=== PATIENT | male | born 1960 | race Caucasian/White ===

== ENCOUNTER 2016-07-23 07:55 | Emergency (ER) | payer MEDICAID ==
[2016-07-23] MEDS ORDERED: ONDANSETRON HCL 4 MG/2 ML VIAL ONE (08:22)
[2016-07-23] MEDS ORDERED: HYDROmorphone HCL 1 MG/ML SYR ONE (08:22)
[2016-07-23 08:39] LABS: BASOPHIL# 0.1 X 10^3uL (0.0-0.1); BASOPHILS 1.6 % (0.0-2.0); EOSINOPHILS# 0.2 X 10^3uL (0.0-0.4); HEMATOCRIT 45.7 % (42.0-54.0); HEMOGLOBIN 15.6 g/dL (14.0-18.0); LYMPHOCYTES 13.8 % (20.0-40.0); LYMPHOCYTES# 0.8 X 10^3uL (0.8-3.8); MEAN CELL VOLUME 83.5 fL (80.0-100.0); MEAN CORPUS. HGB CONCENTRATION 34.2 g/dL (32.0-36.0); MEAN CORPUSCULAR HEMOGLOBIN 28.5 pg (29.0-35.0); MEAN PLATELET VOLUME 7.6 fL (7.4-10.4); MONOCYTES 11.3 % (2.0-10.0); MONOCYTES# 0.7 X 10^3uL (0.2-1.0); NEUTROPHILS 70.3 % (54.0-75.0); PLATELET COUNT 285 X 10^3uL (130-440); RED BLOOD COUNT 5.47 X 10^6uL (4.20-6.10); RED CELL DISTRIBUTION WIDTH 12.9 % (11.5-14.5); WHITE BLOOD COUNT 5.8 X 10^3uL (3.9-10.7)
[2016-07-23 08:44] LABS: ALBUMIN 4.3 g/dL (3.5-5.0); ALKALINE PHOSPHATASE 66 U/L (38-126); ALT 42 U/L (21-72); AST 30 U/L (17-59); BILIRUBIN, DIRECT 0.2 mg/dL (0.0-0.4); BLOOD UREA NITROGEN 23 mg/dL (9-20); CHLORIDE 104 mmol/L (98-107); CREATININE 0.9 mg/dL (0.7-1.3); EST GLOMERULAR FILTRATION RATE > 60 mL/min; GLUCOSE 96 mg/dL (70-100); LIPASE 86 U/L (23-300); POTASSIUM 4.5 mmol/L (3.5-5.1); SODIUM 137 mmol/L (137-145); TOTAL PROTEIN 7.2 g/dL (6.3-8.2)
[2016-07-23] MEDS ORDERED: KETOROLAC TROMETHAMINE 30 MG/ML VIAL ONE (09:20)
[2016-07-23] MEDS ORDERED: BUPIVACAINE HCL/PF 0.5% 30 ML VIAL ONE (09:57)
[2016-07-23] MEDS ORDERED: METHYLPREDNISOLONE ACETATE 40 MG/ML VIAL ONE (10:02)
--- NOTE | 2016-07-23 10:38 | ER PHYSICIAN DOCUMENTATION ---
Physician Documentation [facility] Name:Stephon Quigley Age:56 yrs Sex:Male :1960 Arrival Date:07/23/2016 Time:07:55 Bed4 Private MD:Franky Cordon ED, Scott Disposition: 07/23/16 10:26 Discharged to Home/Self Care. Impression: Abdominal Pain, Unspecified. - Condition is Good. - Discharge Instructions: Abdomen - ABDOMINAL PAIN, Unkown Cause, (Male). - Medical Reconciliation form form. - Follow up: Mckinley Figueroa MD; When: 1 week; Reason: Recheck today's complaints. - Problem is new. - Symptoms have improved. HPI: 07/23 09:10 This 56 yrs old Male presents to ER via Private Vehicle with complaints of sc Abdominal Pain. 09:10 The patient presents with abdominal pain right lower quadrant. Onset: The sc symptoms/episode began/occurred 3 week(s) ago, and became worse yesterday. The symptoms do not radiate. Associated signs and symptoms: none. The symptoms are described as sharp. Severity of pain: At its worst the pain was severe. The patient has experienced a previous episode, umbilical hernia with skin rupture. Historical: - Allergies: PENICILLINS; Mold; - Home Meds: 1. Pravachol Oral 2. fluoxetine oral 3. Singulair Oral 4. multivitamin with minerals oral - PMHx: Asthma; DEPRESSION; hyperlipidemia ; - PSHx: HERNIA REPAIR (2005); knee replacement ; lipoma ; - Tetanus: < 10 years. - Ebola Screening: : Patient negative for fever greater than or equal to 101.5 degrees Fahrenheit, and additional compatible Ebola Virus Disease symptoms. Patient denies exposure to infectious person. Patient denies travel to an Ebola-affected area in the 21 days before illness onset. No symptoms or risks identified at this time. . - Immunization history: Flu Vaccine < 1 year. - Social history: Smoking status: Patient states was never smoker of tobacco. ROS: 09:12 Constitutional: Negative for fever, chills, and weight loss. sc Eyes: Negative for injury, pain, redness, and discharge. ENT: Negative for injury, pain, and discharge. Neck: Negative for injury, pain, and swelling. Cardiovascular: Negative for chest pain, palpitations, and edema. Respiratory: Negative for shortness of breath, cough, wheezing, and pleuritic chest pain. Back: Negative for injury and pain. MS/Extremity: Negative for injury and deformity. Skin: Negative for injury, rash, and discoloration. 09:12 Neuro: Negative for headache, weakness, numbness, tingling, and seizure. sc 09:12 Abdomen/GI: Positive for abdominal pain, black/tarry stool, Negative for vomiting, diarrhea, constipation. Exam: Constitutional: This is a well developed, well nourished patient who is awake, alert, and in no acute distress. Head/Face: Normocephalic, atraumatic. Eyes: Pupils equal round and reactive to light, extra-ocular motions intact. Lids and lashes normal. Conjunctiva and sclera are non-icteric and not injected. Cornea within normal limits. Periorbital areas with no swelling, redness, or edema. ENT: Nares patent. No nasal discharge, no septal abnormalities noted. Tympanic membranes are normal and external auditory canals are clear. Oropharynx with no redness, swelling, or masses, exudates, or evidence of obstruction, uvula midline. Mucous membranes moist. Neck: Trachea midline, no thyromegaly or masses palpated, and no cervical lymphadenopathy. Supple, full range of motion without nuchal rigidity, or vertebral point tenderness. No meningismus. Chest/axilla: Normal chest wall appearance and motion. Nontender with no deformity. No lesions are appreciated. Cardiovascular: Regular rate and rhythm with a normal S1 and S2. No gallops, murmurs, or rubs. Normal PMI, no JVD. No pulse deficits. Respiratory: Lungs have equal breath sounds bilaterally, clear to auscultation and percussion. No rales, rhonchi or wheezes noted. No increased work of breathing, no retractions or nasal flaring. Back: No spinal tenderness. No costovertebral tenderness. Full range of motion. 09:12 Skin: Warm, dry with normal turgor. Normal color with no rashes, no lesions, and no sc evidence of cellulitis. 09:12 Abdomen/GI: Inspection: abdomen appears normal, scar(s), are noted in the umbilical area, Bowel sounds: normal, Palpation: moderate abdominal tenderness, in the right lower quadrant, Rectal exam: Stool: guaiac negative, Indicators: McBurney's point is tender, Serrano's sign is negative, Rovsing's sign is negative, Obturator sign is negative, Psoas sign is negative. Vital Signs: 08:06 BP 133 / 82; Pulse 71; Resp 22; Temp 98.2(O); Pulse Ox 94% on R/A; Weight 113.4 kg; cb Height 5 ft. (152.40 cm); Pain 8/10; 08:06 Body Mass Index 48.82 (113.40 kg, 152.40 cm) cb MDM: 08:47 Patient medically screened. sc 09:13 Differential diagnosis: appendicitis, GI Bleed, Mesenteric ischemia or infarction, sc Pyelonephritis, Ureterolithiasis, vs hernia. Data reviewed: vital signs, nurses notes, lab test result(s), amylase and lipase, CBC, electrolytes, hepatic panel, urinalysis. Data reviewed: and as a result, I will continue to observe the patient. Counseling: I had a detailed discussion with the patient and/or guardian regarding: the historical points, exam findings, and any diagnostic results supporting the discharge/admit diagnosis, lab results. 10:23 Physician consultation: Mckinley Figueroa MD was called at 10:24, was contacted at 10:24, vt regarding patient's condition, and will see patient in ED, immediately. 07/23 08:43 Order name: CBC AUTO DIF, MDIF/RMOR IF IND; Complete Time: 09:10 EDMS 07/23 08:47 Interpretation: Normal. vt 07/23 08:51 Order name: BASIC METABOLIC PANEL; Complete Time: 09:10 EDMS 07/23 09:10 Interpretation: Normal. vt 07/23 08:51 Order name: HEPATIC PANEL; Complete Time: 09:10 EDMS 07/23 09:10 Interpretation: Normal. vt 07/23 08:51 Order name: LIPASE; Complete Time: 09:10 EDMS 07/23 09:10 Interpretation: Normal. vt Dispensed Medications: 08:32 Drug: NS 0.9% 1000 ml; Route: IV; Rate: bolus; Site: left hand; cb 10:00 Follow up: IV Status: Completed infusion; IV Intake: 1000ml cb 08:33 Drug: Zofran 4 mg; Route: IVP; Infused Over: 2 mins; Site: left hand; cb 10:12 Follow up: Response: No adverse reaction cb 08:42 Drug: Dilaudid 1 mg; Route: IVP; Site: left hand; cb 10:12 Follow up: Response: Pain is decreased cb 09:10 Drug: Toradol 30 mg; Route: IVP; Site: left hand; cb 10:39 Follow up: Response: Pain is unchanged, physician notified cb 10:00 Drug: Marcaine (0.5 %) 20 ml; Route: Infiltration; cb 10:39 Follow up: Response: Pain is decreased cb 10:21 Drug: Depo-Medrol 40 mg; {Note: actually given IM rlq abdominal wall.} Route: IM; Site: sc right vastus lateralis; 10:39 Follow up: Response: Pain is decreased cb Point of Care Testing: Urine Dip: 10:12 pH: 7.0; ; Specific [place]: 1.025; Ketones: Negative; Glucose: Negative; Protein: cb Negative; Leukocytes: Negative; Nitrite: Negative ; Blood: Negative; Bilirubin: Negative ; Urobilinogen: Normal Signatures: Joya Croft RN RN cb Chew, Scott, MD MD vt
--- NOTE | 2016-07-23 10:38 | ER NURSING DOCUMENTATION ---
Nurse's Notes [facility] Name:Stephon Quigley Age:56 yrs Sex:Male :1960 Arrival Date:07/23/2016 Time:07:55 Bed4 Private MD:Franky Cordon Diagnosis:Abdominal Pain, Unspecified Presentation: 07/23 08:01 Presenting complaint: Patient states: sharp pain burning R abdomen. cb 08:01 Acuity: SPRING 3 cb 08:10 Notified ED Physician of patient's arrival and CC Dr. Luke notified. cb 08:35 Transition of care: Home. Risk considerations: patient denies pain radiation to back or cb syncopal episode. 08:35 Method Of Arrival: Private Vehicle cb Triage Assessment: 08:01 General: Appears distressed, well groomed, Behavior is cooperative. cb 08:01 Pain: Complains of pain in right lower quadrant Pain currently is 8 out of 10 on a pain cb scale. EENT: No deficits noted. Neuro: Level of Consciousness is awake, alert, Oriented to person, place, time, event. Cardiovascular: Pulses are 2+ in right radial artery. Respiratory: Airway is patent Trachea midline Respiratory effort is even, unlabored, Respiratory pattern is regular, symmetrical, Breath sounds are clear in right upper lobe, left upper lobe, right middle lobe, left lower lobe and right lower lobe. GI: Abdomen is obese, Bowel sounds present in left upper quadrant and left lower quadrant Abd is soft X 4 quads Abdomen is tender to palpation in right lower quadrant Reports nausea, black and tarry stools for two days. Derm: No deficits noted. Musculoskeletal: No deficits noted. Historical: - Allergies: PENICILLINS; Mold; - Home Meds: 1. Pravachol Oral 2. fluoxetine oral 3. Singulair Oral 4. multivitamin with minerals oral - PMHx: Asthma; DEPRESSION; hyperlipidemia ; - PSHx: HERNIA REPAIR (2005); knee replacement ; lipoma ; - Tetanus: < 10 years. - Ebola Screening: : Patient negative for fever greater than or equal to 101.5 degrees Fahrenheit, and additional compatible Ebola Virus Disease symptoms. Patient denies exposure to infectious person. Patient denies travel to an Ebola-affected area in the 21 days before illness onset. No symptoms or risks identified at this time. . - Immunization history: Flu Vaccine < 1 year. - Social history: Smoking status: Patient states was never smoker of tobacco. Screenin:06 Infectious Disease Risk None. Abuse screen: Denies threats or abuse. Denies injuries cb from another. Nutritional screening: No deficits noted. Vital Signs: 08:06 BP 133 / 82; Pulse 71; Resp 22; Temp 98.2(O); Pulse Ox 94% on R/A; Weight 113.4 kg; cb Height 5 ft. (152.40 cm); Pain 8/10; 08:06 Body Mass Index 48.82 (113.40 kg, 152.40 cm) cb ED Course: 07:57 Patient arrived in ED. ds 07:57 Franky Cordon MD is Private Physician. ds 08:01 Joya Croft, RN is Primary Nurse. cb 08:02 Triage completed. cb 08:10 Valuables Remains with patient Patient has correct armband on for positive cb identification. Placed in gown. Bed in low position. Call light in reach. Side rails up X2. 08:10 Pulse Ox - RN Monitoring Only NIBP On - RN Monitoring Only. Diet: Patient is NPO. cb 08:19 Mckinley Luke MD is Attending Physician. sc 08:19 Missed attempts: 18 gauge X 1 in left wrist. cb 08:20 Inserted peripheral IV: 20 gauge in left hand and blood collected. cb 08:20 Labs drawn. (by ED staff). Sent per order to lab. cb 09:07 Assisted to bathroom. cb 10:25 Mckinley Figueroa MD is Referral Physician. sc Administered Medications: 08:32 Drug: NS 0.9% 1000 ml; Route: IV; Rate: bolus; Site: left hand; cb 10:00 Follow up: IV Status: Completed infusion; IV Intake: 1000ml cb 08:33 Drug: Zofran 4 mg; Route: IVP; Infused Over: 2 mins; Site: left hand; cb 10:12 Follow up: Response: No adverse reaction cb 08:42 Drug: Dilaudid 1 mg; Route: IVP; Site: left hand; cb 10:12 Follow up: Response: Pain is decreased cb 09:10 Drug: Toradol 30 mg; Route: IVP; Site: left hand; cb 10:39 Follow up: Response: Pain is unchanged, physician notified cb 10:00 Drug: Marcaine (0.5 %) 20 ml; Route: Infiltration; cb 10:39 Follow up: Response: Pain is decreased cb 10:21 Drug: Depo-Medrol 40 mg; {Note: actually given IM rlq abdominal wall.} Route: IM; Site: ak right vastus lateralis; 10:39 Follow up: Response: Pain is decreased cb Point of Care Testing: Urine Dip: 10:12 pH: 7.0; ; Specific [place]: 1.025; Ketones: Negative; Glucose: Negative; Protein: cb Negative; Leukocytes: Negative; Nitrite: Negative ; Blood: Negative; Bilirubin: Negative ; Urobilinogen: Normal Intake: 10:00 IV: 1000ml; Total: 1000ml. cb Outcome: 10:26 Discharge ordered by . sc 10:36 Discharged to home ambulatory. cb 10:36 Condition: stable 10:36 Discharge Assessment: Patient awake, alert and oriented x 3. No cognitive and/or functional deficits noted. Patient verbalized understanding of disposition instructions. 10:36 Discharge instructions given to patient, Instructed on discharge instructions, follow up and referral plans. Demonstrated understanding of instructions, medications. 10:36 IV D/Valentin 10:37 Patient left the ED. cb 07/24 10:33 Discharge F/U Call: Unable to reach: left voicemail: lp Signatures: Joya Croft RN RN cb Pavlish, Lena, RN RN lp Srot, Deidra, Mckinley Hirsch MD MD ak
--- NOTE | 2016-07-23 12:11 | CONSULTATION ---
DATE OF CONSULTATION: 07/23/16 COVER SEAMER: Mckinley Figueroa MD CHIEF COMPLAINT: Right upper quadrant pain. HISTORY OF PRESENT ILLNESS: This is a 56-year-old male known to me from recent admission for trauma, as well as previous history of lipomas that were excised. He said that for the last 3 weeks, he has had some mild discomfort in the right lower quadrant region. This became increasingly worse the last few days. Yesterday, it was so miserable that he had to quit working and last night he had difficulty sleeping. He did not feel a mass in the area, but just feels burning. He says that it feels better when he lies down and is somewhat worse when he is upright and especially when he has a twisting motion. He denies any fevers, chills, nausea or vomiting. He is eating normally and moving his bowels normally. He is having no difficulty with urination. PAST SURGICAL HISTORY 1. Previous ventral hernia repair which required a mesh. He also has had a left knee arthroscopy and multiple lipomas removed back in April 2016 by myself. HOSPITALIZATIONS 1. Ventral hernia repair. 2. Hospitalized in 02/2016 when he was injured falling out the back of his pickup truck. He required an observation stay and recovered from this without difficulties. PAST MEDICAL HISTORY 1. Hiatal hernia. 2. Cyst on his liver. 3. Colon polyps. 4. Depression. 5. Obesity. 6. Multiple lipomas. ALLERGIES: Fentanyl and most opioids give him difficulties. MEDICATIONS Advair and Combivent for some reactive airway disease. Chlorhexidine for his depression. Meloxicam for arthritic symptoms. Ranitidine for some reflux as well as Pravastatin for hyperlipidemia. SOCIAL HISTORY: Nonsmoker. 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 FAMILY HISTORY: Significant for hyperlipidemia in his father and diabetes in his sister. Mother was in good health when she passed in a motor vehicle accident at age 50. PHYSICAL EXAMINATION VITAL SIGNS: Afebrile. His vital signs are in the normal range. He is uncomfortable but does not appear toxic or in acute distress. ABDOMEN: Well-healed midline incision. There are also some incisions on his abdomen from the lipoma excisions. The abdomen is soft. Bowel sounds are present. He has an area of point tenderness in the right lower quadrant. This would be above the area of the internal ring. When he stands upright, the testes are down bilaterally. He is uncomfortable with exam in the right inguinal region, but I did not feel an inguinal hernia. LABS: Within normal limits. ASSESSMENT: He does not have an acute abdomen and I query that this could be related to an abdominal strain or possibly a hernia at the edge of his mesh. This could also be an inguinal hernia because he does have a fairly large abdomen, his anatomy may be somewhat distorted. I recommend a trigger point injection and gave him 20 mL of 0.25% Marcaine without epinephrine. Following this, I gave him 40 mg of Depo-Medrol. I have asked him to stay out of work, take his Aleve daily and then see me on Friday in the clinic, and if he is not improved, then would consider CT scan of the area . TARUN
== END 2016-07-23 10:38 | disposition home or self-care (01) ==
LOC: ER 07:55
DX: R10.31 Right lower quadrant pain (principal); R19.5 Other fecal abnormalities; Z87.19 Personal history of other diseases of the digestive system; Z98.890 Other specified postprocedural states; E78.5 Hyperlipidemia, unspecified; Z79.899 Other long term (current) drug therapy
CPT/HCPCS: 80048; 80076; 83690; 85025; 96361; 96372; 96374; 96375; 99284; J1170; J1885; J2405